=== PATIENT | female | born 1945 ===

== ENCOUNTER 2020-08-16 12:53 | Day surgery (SDC) | payer OTHER ==
[~2020-08-16 12:53] MED LIST: ALL DAY ALLERGY10 M3 PO; COZAAR50 MG PO; SYNTHROID75 MCG PO; ZETIA10 MG PO; [UNRECOGNIZED DRUG - OTHER] PO
[2020-08-16] MEDS ORDERED: KETO10TA2 PO (15:18)
== END 2020-08-16 21:10 | disposition home or self-care (01) ==
LOC: CIR.AMB 12:53
PROVIDERS: ATTEND Obstetrics & Gynecology
DX: N84.0 Polyp of corpus uteri (principal); Z20.822 Contact with and (suspected) exposure to COVID-19